=== PATIENT | male | born 1960 | race Caucasian/White ===

== ENCOUNTER 2020-11-19 07:43 | Day surgery (SDC) | payer OTHER ==
[~2020-11-19] VITALS: Ht 173 cm; Wt 85.9 kg
[~2020-11-19 07:43] MED LIST: MOTRIN600 MG PO
[2020-11-20 06:31] LABS: BASOPHIL 0.4 % (0-2); EOSINOPHIL 0.4 % (0-5); HCT 44.8 % (42.0-52.0); HGB 14.1 g/dl (13.2-18.0); LYMPHOCYTE 17.6 % (15-48); MCH 27.5 pg (25.0-31.0); MCHC 31.5 g/dL (32.0-36.0); MCV 87.5 fL (78.0-100.0); MPV 9.8 fL (6.0-9.5); NEUTROPHIL 72.3 % (41-80); NRBC 0; PLT 197 K/uL (150-400); RBC 5.12 M/uL (4.70-6.00)
[2020-11-20 06:59] LABS: BUN/CREAT RATIO (CALC) 13.3 RATIO; CREATININE 0.98 mg/dL (0.67-1.17); POTASSIUM 3.9 mmol/L (3.5-5.1)
[2020-11-20] MEDS ORDERED: FEOSOL325 MG PO (12:41)
[2020-11-20] MEDS ORDERED: ASPIRIN325 MG PO (12:44)
[2020-11-20] MEDS ORDERED: OXYCODONE-ACET1 EAC1 PO (12:45)
[2020-11-20] MEDS ORDERED: PANTOPRAZOLE SO40 MG PO (12:46)
[2020-11-20] MEDS ORDERED: TAB-A-VITE TA400 MC1 PO (12:46)
--- NOTE | 2020-11-20 14:20 | NUR ---
PT D/C HOME WITH SPOUSE WITH NO NEEDS AT THIS TIME.
== END 2020-11-20 14:25 | disposition home or self-care (01) ==
LOC: FAS 07:43 → EDSTATUS 08:30 → FMS 08:30 → FAS 09:00 → FOFB 12:22 → FAS 11-20 14:25
PROVIDERS: Nurse Practitioner
DX: M19.011 Primary osteoarthritis, right shoulder (principal); M75.101 Unspecified rotator cuff tear or rupture of right shoulder, not specified as traumatic; M62.511 Muscle wasting and atrophy, not elsewhere classified, right shoulder; F17.210 Nicotine dependence, cigarettes, uncomplicated; G89.18 Other acute postprocedural pain
CPT/HCPCS: 36415; 73020; 80048; 85025; 86850; 86900; 86901; 94010; 97162; 97165; 97530-GP; 97535; C1713; C1776; J0171; J0697; J1100; J1170; J1885; J2250; J2270; J2370; J2704; J2795; J3010; J7120